=== PATIENT | female | born 1985 | race Caucasian/White ===

== ENCOUNTER 2023-06-02 13:11 | Emergency (ER) | payer OTHER ==
[~2023-06-02] VITALS: Ht 170.2 cm; Wt 74.8 kg
[2023-06-02 14:03] VITALS: BP 108/83
[2023-06-02] MEDS ORDERED: Prednisone20 MG PO (14:19)
== END 2023-06-02 14:13 | disposition home or self-care (01) ==
LOC: ER 13:11
DX: L23.7 Allergic contact dermatitis due to plants, except food (principal)
CPT/HCPCS: 99282